=== PATIENT | female | born 1955 | race Asian ===

== ENCOUNTER 2017-02-07 07:36 | Outpatient (CLI) | payer BC | END 2017-02-07 07:37 | disposition home or self-care (01) | DX: L40.50 Arthropathic psoriasis, unspecified (principal) ==

== ENCOUNTER 2017-03-28 10:00 | Outpatient (CLI) | payer BC, MEDICAID ==
[2017-03-28 13:30] LABS: ALBUMIN/GLOBULIN RATIO 1.2 (1.0-2.2); BILIRUBIN,TOTAL 0.8 mg/dL (0.2-1.0); BUN - BLOOD UREA NITROGEN 18 mg/dL (6-20); CALCIUM 10.1 mg/dL (8.5-10.3); CARBON DIOXIDE - CO2 28 mmol/L (21-32); CHLORIDE 102 mmol/L (101-111); CHOL/HDL RATIO 5.7 (<4.4); CHOLESTEROL 279 mg/dL; CREATININE 0.9 mg/dL (0.4-1.0); GFR - MDRD 64 (>89); GLUCOSE 96 mg/dL (70-100); HDL CHOLESTEROL 49 mg/dL; LDL/HDL RATIO 4.1 (<4.4); POTASSIUM 2.8 mmol/L (3.5-5.0); SODIUM 139 mmol/L (135-145); TOTAL PROTEIN 7.8 g/dL (6.7-8.2); TRIGLYCERIDES 155 mg/dL; VLDL CHOLESTEROL 31 mg/dL
[2017-03-28 14:07] LABS: THYROID STIMULATING HORMONE 0.09 uIU/mL (0.34-5.60)
== END 2017-03-28 10:01 | disposition home or self-care (01) ==
LOC: LAB.N 10:00
PROVIDERS: ATTEND Family Medicine
DX: I12.9 Hypertensive chronic kidney disease with stage 1 through stage 4 chronic kidney disease, or unspecified chronic kidney disease (principal); N28.9 Disorder of kidney and ureter, unspecified
CPT/HCPCS: 36415; 80053; 80061; 84439; 84443

== ENCOUNTER 2017-06-25 15:08 | Outpatient (CLI) | payer MEDICAID ==
[2017-06-25 15:46] LABS: CALCIUM 9.9 mg/dL (8.5-10.3); CREATININE 1.1 mg/dL (0.4-1.0); POTASSIUM 3.6 mmol/L (3.5-5.0)
[2017-06-25 16:56] LABS: THYROID STIMULATING HORMONE 1.27 uIU/mL (0.34-5.60)
== END 2017-06-25 15:09 | disposition home or self-care (01) ==
LOC: LAB 15:08
PROVIDERS: ATTEND Family Medicine
DX: E87.6 Hypokalemia (principal); E03.9 Hypothyroidism, unspecified
CPT/HCPCS: 36415; 80048; 84439; 84443

== ENCOUNTER 2017-08-13 10:30 | Emergency (ER) | payer MEDICAID ==
--- NOTE | 2017-08-13 12:10 | ED Physician Documentation ---
PD HPI FOCAL NEURO - Stated complaint Stated Complaint: DIZZINESS - Chief complaint Chief Complaint: Neuro - History obtained from History obtained from: Patient - History of Present Illness Timing - onset: Other (62-year-old woman with history of recurrent vertigo and rheumatoid arthritis as well as psoriasis presents with spinning vertigo that started while she was rotating to get out of bed this morning. She had 2 episodes of vomiting. The vertigo is now gone but the nausea is persistent. She had a headache with this but it was mild and is gone at this point. She also notes for the last week she has had diffuse increased joint swelling and pain especially of the hands feet and ankles. There is no associated fever. She has had some pain of the right ear but no hearing issues. No diplopia.) Review of Systems Constitutional: denies: Fever, Chills Eyes: denies: Loss of vision, Decreased vision, Photophobia, Discharge, Irritation Ears: reports: Ear pain. denies: Loss of hearing, Drainage/discharge, Tinnitus/ ringing, Foreign body Nose: denies: Rhinorrhea / runny nose, Congestion Cardiac: denies: Chest pain / pressure, Palpitations Respiratory: denies: Dyspnea, Cough GI: reports: Nausea, Vomiting. 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 - Present Medications Home Medications: Ambulatory Orders Medication Instructions Recorded Confirmed Etanercept [Enbrel] 50 mg SQ 08/13/17 Lactobacillus Acidophilus 1 each PO 08/13/17 [Probiotic Acidophilus] Levothyroxine [Synthroid] 08/13/17 Meclizine HCl 1 tab PO Q6H PRN #15 tab.chew 08/13/17 Ondansetron HCl [Zofran] 4 mg PO Q6H PRN #10 tablet 08/13/17 Potassium Chloride 10 meq PO 08/13/17 Pravastatin [Pravachol] 08/13/17 predniSONE [Deltasone] 20 mg PO [id number] #21 tab 08/13/17 - Allergies Allergies/Adverse Reactions: Allergies Allergy/AdvReac Type Severity Reaction Status Date / Time No Known Drug Allergies Allergy Verified 08/13/17 10:37 - Social History Does the pt smoke?: No Smoking Status: Never smoker Does the pt drink ETOH?: No Does the pt have substance abuse?: No - Immunizations Immunizations are current?: Yes - POLST Patient has POLST: No PD ED PE NORMAL - Vitals Vital signs reviewed: Yes - General General: Alert and oriented X 3, No acute distress - HEENT HEENT: PERRL, EOMI, Ears normal, Moist mucous membranes, Pharynx benign - Neck Neck: Supple, no meningeal sign, No bony TTP - Cardiac Cardiac: RRR, No murmur - Respiratory Respiratory: No respiratory distress, Clear bilaterally - Abdomen Abdomen: Normal bowel sounds, Soft, Non tender - Back Back: No CVA TTP, No spinal TTP - Extremities Extremities: No edema, No calf tenderness / cord - Neuro Neuro: Alert and oriented X 3, Normal speech - Psych Psych: Normal mood, Normal affect NIHSS - Time Time: 12:05 - Level of Consciousness Level of consciousness: (0) Alert, Keenly responsive LOC Questions: (0) Answers both Q's correct LOC Commands: (0) Performs both correctly - Gaze Best Gaze: (0) Normal - Visual Visual: (0) No loss - Facial Palsy Facial Palsy: (0) Normal, symmetrical movement - Motor Arms (both separate) Motor Arm (right): (0) No drift Motor Arm (left): (0) No drift - Motor Legs (both separate) Motor Leg (right): (0) No drift Motor Leg (left): (0) No drift - Limb Ataxia Limb Ataxia: (0) Absent - Sensory Sensory: (0) Normal - Best Language Best Language: (0) No aphasia - Dysarthria Dysarthria: (0) Normal - Extinction and Inattention (formally neg Extinction and inattention: (0) No abnormality - Total Score/Results Total Score/Result: 0 Results - Vitals Vitals: Vital Signs - 24 hr 08/13/17 10:34 Temperature 36.4 C L Heart Rate 53 L Respiratory 16 Rate Blood Pressure 163/81 H O2 Saturation 98 Oxygen O2 Source Room air - EKG (time done) 1039 Rate: Rate (enter#) (54) Rhythm: NSR [place]: Normal Intervals: Normal HI QRS: Normal Ischemia: Non specific changes (FLAT TWAVES IZZY INFERIUOR). No: ST elevation c /w ischemia Computer interpretation: Agree with computer PD MEDICAL DECISION MAKING - ED course ED course: 62-year-old woman with resolved recurrent vertigo with nausea that is persistent , also a rheumatoid arthritis flare without physical findings. She is given meclizine, Zofran, prednisone taper. There is no evidence of CVA. Departure - Departure Disposition: 01 Home, Self Care Clinical Impression: Vertigo, Rheumatoid arthritis flare Condition: Good Record reviewed to determine appropriate education?: Yes Instructions: ED Arthritis Rheumatoid, ED Vertigo Unspecified Prescriptions: Meclizine HCl 1 tab PO Q6H PRN #15 tab.chew PRN Reason: Vertigo Ondansetron HCl [Zofran] 4 mg PO Q6H PRN #10 tablet PRN Reason: Nausea / Vomiting predniSONE [Deltasone] 20 mg PO [id number] #21 tab Comments: Call your doctor to arrange a follow-up appointment, make the next available appointment. In the interim, return anytime if worse or if new symptoms develop. Your blood pressure was elevated today on check into the emergency department. This does not mean that you have hypertension, it is a common phenomenon to come to the emergency department and have elevated blood pressure. I recommend that you see your primary care physician within the week to have it rechecked when you are feeling better. Forms: Activity restrictions
[2017-08-13 12:15] VITALS: BP 167/78
== END 2017-08-13 12:15 | disposition home or self-care (01) ==
LOC: ED 10:30
DX: R42 Dizziness and giddiness (principal); M06.9 Rheumatoid arthritis, unspecified; R03.0 Elevated blood-pressure reading, without diagnosis of hypertension
CPT/HCPCS: 93005; 99283; 99284

== ENCOUNTER 2017-08-22 13:43 | Outpatient (CLI) | payer MEDICAID ==
[2017-08-22 14:41] LABS: BASOPHILS # (AUTO) 0.1 10^3/uL (0.0-0.1); BASOPHILS % (AUTO) 0.9 %; EOSINOPHILS # (AUTO) 0.1 10^3/uL (0.0-0.7); EOSINOPHILS % (AUTO) 1.4 %; HCT - HEMATOCRIT 41.9 % (37.0-47.0); LYMPHOCYTES % (AUTO) 31.3 %; MEAN CORPUSCULAR HEMOGLOBIN 30.2 pg (27.0-31.0); MEAN CORPUSCULAR HGB CONC 33.4 g/dL (32.0-36.0); MEAN CORPUSCULAR VOLUME 90.7 fL (81.0-99.0); MEAN PLATELET VOLUME 8.1 fL (7.9-10.8); MONOCYTES % (AUTO) 9.9 %; NEUTROPHILS # (AUTO) 5.4 10^3/uL (1.5-6.6); NEUTROPHILS % (AUTO) 56.5 %; NUCLEATED RED BLOOD CELLS AUTO 0.1 /100WBC; RED BLOOD COUNT 4.62 10^6/uL (4.20-5.40); RED CELL DISTRIBUTION WIDTH 13.8 % (12.0-15.0); UNCORRECTED WHITE BLOOD COUNT 9.6 x10^3/uL; WHITE BLOOD COUNT 9.6 x10^3/uL (4.8-10.8)
[2017-08-22 14:52] LABS: ALBUMIN/GLOBULIN RATIO 1.2 (1.0-2.2); BILIRUBIN,TOTAL 0.7 mg/dL (0.2-1.0); CALCIUM 9.5 mg/dL (8.5-10.3); CREATININE 1.3 mg/dL (0.4-1.0); POTASSIUM 2.7 mmol/L (3.5-5.0); TOTAL PROTEIN 7.1 g/dL (6.7-8.2)
[2017-08-26 16:11] LABS: TEST RESULT REPORT
== END 2017-08-22 13:44 | disposition home or self-care (01) ==
LOC: LAB 13:43
PROVIDERS: ATTEND Family Medicine
DX: L40.50 Arthropathic psoriasis, unspecified (principal)
CPT/HCPCS: 36415; 80053; 81599; 85025; 85651; 86317; 86480; 86704; 87340

== ENCOUNTER 2017-09-17 15:32 | Outpatient (CLI) | payer MEDICAID ==
[2017-09-17 16:13] LABS: CALCIUM 10.5 mg/dL (8.5-10.3); CREATININE 1.1 mg/dL (0.4-1.0); POTASSIUM 3.9 mmol/L (3.5-5.0)
== END 2017-09-17 15:33 | disposition home or self-care (01) ==
LOC: LAB 15:32
PROVIDERS: ATTEND Family Medicine
DX: E87.6 Hypokalemia (principal)
CPT/HCPCS: 36415; 80048

== ENCOUNTER 2017-11-11 09:00 | Emergency (ER) | payer MEDICAID ==
[2017-11-11 09:18] VITALS: BP 135/72
[2017-11-11] MEDS ORDERED: IBUPROFEN 400 MG TABLET PO STA (09:35)
--- NOTE | 2017-11-11 09:39 | ED Physician Documentation ---
History of Present Illness - Stated complaint Stated Complaint: LEFT ANKLE PX - Chief complaint Chief Complaint: Ext Problem - Additonal information Additional information: hx from pt 62 female hx ankle sprain and recurrent ankle pain and swelling phyllis with bad weather her ankle has again been painful and swollen for a few days cannot work at [employer] today 2/2 pain was warm to touch yesterday but less so today no fever no one injury Review of Systems Constitutional: denies: Fever Cardiac: denies: Chest pain / pressure Respiratory: denies: Dyspnea Musculoskeletal: reports: Joint pain Immunocompromised: reports: Immunocompromised (takes meds for psoriasis) PD PAST MEDICAL HISTORY - Past Medical History Past Medical History: Yes Cardiovascular: Hypertension Endocrine/Autoimmune: HyPOthyroidism - Past Surgical History Past 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 - Present Medications Home Medications: Ambulatory Orders Medication Instructions Recorded Confirmed Levothyroxine [Synthroid] 08/13/17 Potassium Chloride 10 meq PO 08/13/17 Pravastatin [Pravachol] 08/13/17 Ibuprofen [Motrin] 400 mg PO Q8H PRN #20 tablet 11/11/17 Lactobacillus Acidophilus 11/11/17 [Digestive Probiotic] Secukinumab [Cosentyx Pen] 11/11/17 - Allergies Allergies/Adverse Reactions: Allergies Allergy/AdvReac Type Severity Reaction Status Date / Time No Known Drug Allergies Allergy Verified 11/11/17 09:18 - Social History Does the pt smoke?: No Smoking Status: Never smoker Does the pt drink ETOH?: No Does the pt have substance abuse?: No - Immunizations Immunizations are current?: Yes - POLST Patient has POLST: No PD ED PE NORMAL - Vitals Vital signs reviewed: Yes - Cardiac Cardiac: RRR - Respiratory Respiratory: No respiratory distress, Clear bilaterally - Extremities Extremities: Other (L vic - _ edema to [place]rah[place] mall lateral > medial, slightly warm , no sig erythema, some psoriasis but no open infected wounds, no streaking, able to range with minimal pain, calf not swollen and no cord, MSV intact) Results - Vitals Vitals: Vital Signs - 24 hr 11/11/17 09:03 Temperature 36.5 C Heart Rate 73 Respiratory 20 Rate Blood Pressure 135/72 H O2 Saturation 100 Oxygen O2 Source Room air PD MEDICAL DECISION MAKING - ED course ED course: seems most like an arthritis flare 2/2 cold weather today - pt has hx same doubt infected joint but she is slightly immunocompromised from her psoriasis meds will tx with NSAIDS but caution to return if worse Departure - Departure Disposition: Home, Self Care Clinical Impression: Arthritis Condition: Good Follow-Up: Sunny Mcdonough MD [Primary Care Provider] - (for a recheck Saturday) Prescriptions: Ibuprofen [Motrin] 400 mg PO Q8H PRN #20 tablet PRN Reason: Pain Comments: At this point this pain looks like an arthritis flare. Try taking motrin 400 mg three times a day with meals, resting, using the BHAKTI wrap and ice and elevation to decrease the swelling I wrote you a note for two days off work. Follow up with your PMD for a recheck Saturday Return to the ER if worse as we discussed(fever, streaking redness, worsening swelling and pain) Forms: Activity restrictions
== END 2017-11-11 10:32 | disposition home or self-care (01) ==
LOC: ED 09:00
DX: M19.072 Primary osteoarthritis, left ankle and foot (principal); M19.071 Primary osteoarthritis, right ankle and foot; I10 Essential (primary) hypertension; E03.9 Hypothyroidism, unspecified
CPT/HCPCS: 99283; A9270

== ENCOUNTER 2018-01-03 08:00 | Outpatient (CLI) | payer MEDICAID ==
[2018-01-03 19:09] LABS: CALCIUM 9.6 mg/dL (8.5-10.3)
[2018-01-03 19:26] LABS: THYROID STIMULATING HORMONE 0.87 uIU/mL (0.34-5.60)
[2018-01-03 19:28] LABS: FREE T4 (FREE THYROXINE) 1.3 ng/dL (0.58-1.64)
== END 2018-01-03 08:01 | disposition home or self-care (01) ==
LOC: LAB.N 08:00
PROVIDERS: ATTEND Family Medicine
DX: E87.6 Hypokalemia (principal); E03.9 Hypothyroidism, unspecified
CPT/HCPCS: 36415; 80048; 84439; 84443

== ENCOUNTER 2018-03-20 08:00 | Outpatient (CLI) | payer MEDICAID ==
[2018-03-20 12:42] LABS: ALBUMIN 3.7 g/dL (3.2-5.5); ALBUMIN/GLOBULIN RATIO 1.1 (1.0-2.2); BILIRUBIN,TOTAL 0.9 mg/dL (0.2-1.0); CALCIUM 9.8 mg/dL (8.5-10.3); CREATININE 0.9 mg/dL (0.4-1.0); TOTAL PROTEIN 7.1 g/dL (6.7-8.2)
[2018-03-20 12:48] LABS: BASOPHILS % (AUTO) 0.9 %; EOSINOPHILS # (AUTO) 0.1 10^3/uL (0.0-0.7); EOSINOPHILS % (AUTO) 2.3 %; HGB - HEMOGLOBIN 13.7 g/dL (12.0-16.0); LYMPHOCYTES # (AUTO) 2.2 10^3/uL (1.5-3.5); LYMPHOCYTES % (AUTO) 42.4 %; MEAN CORPUSCULAR HEMOGLOBIN 30.8 pg (27.0-31.0); MEAN CORPUSCULAR HGB CONC 33.5 g/dL (32.0-36.0); MEAN CORPUSCULAR VOLUME 91.9 fL (81.0-99.0); MEAN PLATELET VOLUME 8.5 fL (7.9-10.8); MONOCYTES # (AUTO) 0.4 10^3/uL (0.0-1.0); MONOCYTES % (AUTO) 7.7 %; NEUTROPHILS # (AUTO) 2.4 10^3/uL (1.5-6.6); NEUTROPHILS % (AUTO) 46.7 %; PLT - PLATELET COUNT 261 10^3/uL (130-450); RED BLOOD COUNT 4.44 10^6/uL (4.20-5.40); RED CELL DISTRIBUTION WIDTH 13.5 % (12.0-15.0); WHITE BLOOD COUNT 5.2 x10^3/uL (4.8-10.8)
== END 2018-03-20 08:01 | disposition home or self-care (01) ==
LOC: LAB.WCP 08:00
PROVIDERS: ATTEND Internal Medicine Rheumatology
DX: L40.50 Arthropathic psoriasis, unspecified (principal)
CPT/HCPCS: 36415; 80053; 85025; 85651

== ENCOUNTER 2018-04-29 13:55 | Emergency (ER) | payer OTHER, MEDICAID ==
--- NOTE | 2018-04-29 15:22 | XRAY Report ---
Procedure Date: 04/29/2018 Accession Number: [id number] / [id number] Procedure: XR - Hand 3 View LT CPT Code: FULL RESULT: EXAM: LEFT HAND RADIOGRAPHY EXAM DATE: 04/29/2018 03:11 PM. CLINICAL HISTORY: Hand injury/pain/swelling. COMPARISON: None. TECHNIQUE: 3 views. FINDINGS: Bones: No displaced fracture. No suspicious focal osseous lesion. Joints: No malalignment. Multifocal joint space narrowing and osteophytic spurring present throughout the proximal and distal interphalangeal joints of the second through fifth digits, mild. Mild degenerative change at the first carpometacarpal joint and moderate at the first metacarpophalangeal joint. Soft Tissues: No focal soft tissue swelling appreciated. No radiopaque foreign body. IMPRESSION: No acute osseous abnormality with multifocal DJD, greatest and moderate at the first metacarpophalangeal joint. RADIA
--- NOTE | 2018-04-29 16:40 | ED Physician Documentation ---
PD HPI UPPER EXT INJURY - Stated complaint Stated Complaint: HAND INJURY - Chief complaint Chief Complaint: Trauma Ext - History obtained from History obtained from: Patient - History of Present Illness Location: Left, Hand Type of injury: Blunt / blow (dumpster lid struck hand firmly.) Where injury occurred: Work Timing - onset: Today Timing - details: Abrupt onset, Still present Worsened by: Moving, Palpating Associated symptoms: Swelling. 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 - Present Medications Home Medications: Ambulatory Orders Medication Instructions Recorded Confirmed Levothyroxine [Synthroid] 08/13/17 Potassium Chloride 10 meq PO 08/13/17 Pravastatin [Pravachol] 08/13/17 Ibuprofen [Motrin] 400 mg PO Q8H PRN #20 tablet 11/11/17 Lactobacillus Acidophilus 11/11/17 [Digestive Probiotic] Secukinumab [Cosentyx Pen] 11/11/17 - Allergies Allergies/Adverse Reactions: Allergies Allergy/AdvReac Type Severity Reaction Status Date / Time No Known Drug Allergies Allergy Verified 11/11/17 09:18 - Social History Does the pt smoke?: No Smoking Status: Never smoker Does the pt drink ETOH?: No Does the pt have substance abuse?: No - Immunizations Immunizations are current?: Yes - POLST Patient has POLST: No PD ED PE NORMAL - Vitals Vital signs reviewed: Yes - General General: Alert and oriented X 3, No acute distress, Well developed/nourished - Derm Derm: Normal color, Warm and dry - Extremities Extremities: Other (left hand with focal swelling and tenderness, early bruising , dorsal aspect over 3rd-5th metacarpals area. No gross deformity. Normal color in fingers. ) - Neuro Neuro: Alert and oriented X 3, No motor deficit, No sensory deficit, Normal speech Results - Vitals Vitals: Oxygen O2 Source Room air - Rads (name of study) right hand Radiology: Prelim report reviewed (no fractures) PD MEDICAL DECISION MAKING - ED course Complexity details: reviewed results, considered differential, d/w patient - Sepsis Event Vital Signs: Oxygen O2 Source Room air Departure - Departure Disposition: 01 Home, Self Care Clinical Impression: Contusion of left hand Qualifiers: Encounter type: initial encounter Qualified Code(s): S60.222A - Contusion of left hand, initial encounter Condition: Stable Record reviewed to determine appropriate education?: Yes Instructions: ED Contusion Hand Follow-Up: Sunny Mcdonough MD [Primary Care Provider] - Comments: Ice and elevation and Suhail wrap for the swelling. There is no fracture seen on x -ray. Tylenol and ibuprofen as needed for pains. Minimal use of that hand for 2-3 days and it should improve. Recheck if not improved over the next several days to week. Forms: Activity restrictions Discharge Date/Time: 04/29/18 17:15
[2018-04-29] MEDS ORDERED: IBUPROFEN 600 MG TABLET PO STA (16:52)
[2018-04-29] MEDS ORDERED: ACETAMINOPHEN 325 MG TABLET PO STA (16:52)
[2018-04-29 17:10] VITALS: BP 135/90
== END 2018-04-29 17:15 | disposition home or self-care (01) ==
LOC: ED 13:55
DX: S60.222A Contusion of left hand, initial encounter (principal); W22.8XXA Striking against or struck by other objects, initial encounter; I10 Essential (primary) hypertension; E03.9 Hypothyroidism, unspecified; Y99.0 Civilian activity done for income or pay
CPT/HCPCS: 1040M; 73130; 99282; 99283; A9270

== ENCOUNTER 2018-05-06 14:47 | Emergency (ER) | payer OTHER, MEDICAID ==
[2018-05-06 15:02] VITALS: BP 130/64
--- NOTE | 2018-05-06 15:42 | XRAY Report ---
Procedure Date: 05/06/2018 Accession Number: [id number] / [id number] Procedure: XR - Hand 3 View LT CPT Code: FULL RESULT: EXAM: LEFT HAND RADIOGRAPHY EXAM DATE: 05/06/2018 03:17 PM. CLINICAL HISTORY: Pain/swelling. COMPARISON: Hand 3 view left 04/29/2018. TECHNIQUE: 3 views. FINDINGS: Bones: Normal. No fractures or bone lesions. Joints: Minimal degenerative joint disease at the interphalangeal joints is again seen. [id number] degenerative changes at the first metacarpophalangeal and carpometacarpal joints is also redemonstrated. Soft Tissues: Normal. No soft tissue swelling. IMPRESSION: [id number] degenerative changes, unchanged from prior. No acute fracture or dislocation. RADIA
--- NOTE | 2018-05-06 15:45 | ED Physician Documentation ---
PD HPI UPPER EXT INJURY - Stated complaint Stated Complaint: L HAND INJ - Chief complaint Chief Complaint: Ext Problem - History obtained from History obtained from: Patient - History of Present Illness Location: Left, Hand Type of injury: Blunt / blow Where injury occurred: Work Timing - onset: How many days ago (7) Timing - duration: Days (7) Timing - details: Abrupt onset, Still present Improved by: Rest, Ice, Immobilization Worsened by: Moving, Palpating Associated symptoms: Swelling. No: Weakness, Numbness Contributing factors: No: Anticoagulated Similar symptoms before: Has not had sx before Recently seen: Emergency Dept - Additonal information Additional information: 63-year-old female was at work 1 week ago when the crank arm from a dumpster flipped back and struck her left hand over the dorsum. She had a significant amount of swelling with this and was seen in the emergency department had x- rays demonstrate no fracture and she was placed into an aluminum foam splint. She was instructed to have modified duty at work. She continues to have pain and swelling and she is not able to perform her duties at work. Review of Systems Constitutional: denies: Fever Respiratory: denies: Cough GI: denies: Vomiting : denies: Dysuria Skin: denies: Rash Musculoskeletal: reports: Extremity pain, Extremity swelling, Pain with weight bearing. 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 - Present Medications Home Medications: Ambulatory Orders Medication Instructions Recorded Confirmed Levothyroxine [Synthroid] 08/13/17 Potassium Chloride 10 meq PO 08/13/17 Pravastatin [Pravachol] 08/13/17 Ibuprofen [Motrin] 400 mg PO Q8H PRN #20 tablet 11/11/17 Lactobacillus Acidophilus 11/11/17 [Digestive Probiotic] Secukinumab [Cosentyx Pen] 11/11/17 - Allergies Allergies/Adverse Reactions: Allergies Allergy/AdvReac Type Severity Reaction Status Date / Time cephalexin [From Keflex] Allergy Hives Verified 05/06/18 15:02 - Social History Does the pt smoke?: No Smoking Status: Never smoker Does the pt drink ETOH?: No Does the pt have substance abuse?: No - Immunizations Immunizations are current?: Yes - POLST Patient has POLST: No PD ED PE NORMAL - Vitals Vital signs reviewed: Yes (normal) - General General: Alert and oriented X 3, No acute distress, Well developed/nourished - HEENT HEENT: Atraumatic, PERRL - Respiratory Respiratory: No respiratory distress - Derm Derm: Normal color, Warm and dry, No rash - Extremities Extremities: No deformity, Other (There is swelling and point tenderness over the dorsum of the left hand over hte 2nd and 3rd metacarpals. She is able flex and extend at the wrist and fingers with pain. distal n/v is intact. 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, No motor deficit, No sensory deficit, Normal speech Eye Opening: Spontaneous Motor: Obeys Commands Verbal: Oriented GCS Score: 15 - Psych Psych: Normal mood, Normal affect Results - Vitals Vitals: Vital Signs - 24 hr 05/06/18 14:59 Temperature 36.0 C L Heart Rate 66 Respiratory 18 Rate Blood Pressure 130/64 O2 Saturation 97 Oxygen O2 Source Room air - Rads (name of study) left hand Radiology: Prelim report reviewed Procedures - Splint (location) left hand Splint applied by: Tech Type of splint: Fiberglass, Volar cock up Other: Patient tolerated well, No complications, Neurovascular intact, Good alignment PD MEDICAL DECISION MAKING - ED course Complexity details: reviewed old records, reviewed results, re-evaluated patient , considered differential, d/w patient ED course: 63-year-old female with a contusion to the left hand with significant swelling and pain. She has had to use the hand at work and she needs time to recover. She is placed into a fiberglass splint and given 5 days without work. - Sepsis Event Vital Signs: Vital Signs - 24 hr 05/06/18 14:59 Temperature 36.0 C L Heart Rate 66 Respiratory 18 Rate Blood Pressure 130/64 O2 Saturation 97 Oxygen O2 Source Room air Departure - Departure Disposition: 01 Home, Self Care Clinical Impression: Contusion of left hand Qualifiers: Encounter type: subsequent encounter Qualified Code(s): S60.222D - Contusion of left hand, subsequent encounter Condition: Stable Instructions: ED Contusion Hand Follow-Up: Sunny Mcdonough MD [Primary Care Provider] - Forms: Activity restrictions
== END 2018-05-06 15:49 | disposition home or self-care (01) ==
LOC: ED 14:47
DX: S60.222A Contusion of left hand, initial encounter (principal); W22.8XXA Striking against or struck by other objects, initial encounter; Y99.0 Civilian activity done for income or pay; I10 Essential (primary) hypertension; E03.9 Hypothyroidism, unspecified
CPT/HCPCS: 29125; 99281; 99283

== ENCOUNTER 2018-07-11 09:50 | Outpatient (CLI) | payer MEDICAID ==
[2018-07-11 12:32] LABS: BASOPHILS % (AUTO) 0.8 %; EOSINOPHILS # (AUTO) 0.1 10^3/uL (0.0-0.7); EOSINOPHILS % (AUTO) 1.9 %; HGB - HEMOGLOBIN 13.9 g/dL (12.0-16.0); LYMPHOCYTES # (AUTO) 2.4 10^3/uL (1.5-3.5); LYMPHOCYTES % (AUTO) 43.8 %; MEAN CORPUSCULAR HEMOGLOBIN 30.4 pg (27.0-31.0); MEAN CORPUSCULAR HGB CONC 33.9 g/dL (32.0-36.0); MEAN CORPUSCULAR VOLUME 89.6 fL (81.0-99.0); MEAN PLATELET VOLUME 8.3 fL (7.9-10.8); MONOCYTES # (AUTO) 0.4 10^3/uL (0.0-1.0); NEUTROPHILS # (AUTO) 2.5 10^3/uL (1.5-6.6); NEUTROPHILS % (AUTO) 45.5 %; PLT - PLATELET COUNT 280 10^3/uL (130-450); RED BLOOD COUNT 4.58 10^6/uL (4.20-5.40); RED CELL DISTRIBUTION WIDTH 13.3 % (12.0-15.0); WHITE BLOOD COUNT 5.4 x10^3/uL (4.8-10.8)
[2018-07-11 12:41] LABS: ALBUMIN/GLOBULIN RATIO 1.1 (1.0-2.2); ALKALINE PHOSPHATASE 67 IU/L (42-121); ALT ALANINE AMINOTRANSFERASE 19 IU/L (10-60); AST ASPARTATE AMINOTRANSFERASE 23 IU/L (10-42); BILIRUBIN,TOTAL 0.9 mg/dL (0.2-1.0); BUN - BLOOD UREA NITROGEN 16 mg/dL (6-20); CALCIUM 9.9 mg/dL (8.5-10.3); CARBON DIOXIDE - CO2 29 mmol/L (21-32); CHLORIDE 101 mmol/L (101-111); CHOL/HDL RATIO 4.7 (<4.4); CHOLESTEROL 262 mg/dL; CREATININE 0.9 mg/dL (0.4-1.0); GFR - MDRD 64 (>89); GLUCOSE 103 mg/dL (70-100); HDL CHOLESTEROL 56 mg/dL; LDL CHOLESTEROL,CALCULATED 179 mg/dL; LDL/HDL RATIO 3.2 (<4.4); SODIUM 139 mmol/L (135-145); TOTAL PROTEIN 7.5 g/dL (6.7-8.2); VLDL CHOLESTEROL 27 mg/dL
[2018-07-11 12:48] LABS: THYROID STIMULATING HORMONE 0.36 uIU/mL (0.34-5.60)
[2018-07-11 12:51] LABS: FREE T4 (FREE THYROXINE) 1.35 ng/dL (0.58-1.64)
== END 2018-07-11 09:51 | disposition home or self-care (01) ==
LOC: LAB.N 09:50
PROVIDERS: ATTEND Family Medicine
DX: E87.6 Hypokalemia (principal); R73.9 Hyperglycemia, unspecified; I10 Essential (primary) hypertension; E03.9 Hypothyroidism, unspecified
CPT/HCPCS: 36415; 80053; 80061; 83721; 84439; 84443; 85025

== ENCOUNTER 2018-08-02 21:52 | Outpatient (CLI) | payer MEDICAID | END 2018-08-02 21:53 | disposition critical access hospital (66) | LOC: EMS 21:52 | PROVIDERS: ATTEND Surgery | DX: R07.9 Chest pain, unspecified (principal) | CPT/HCPCS: A0425; A0429; A0999 ==

== ENCOUNTER 2018-08-02 22:12 | Emergency (ER) | payer MEDICAID ==
[2018-08-02] MEDS ORDERED: cefTRIAXone 1 GM in SODIUM CHLORIDE 0.9% MINIBAG 100 ML IV STA (22:39)
--- NOTE | 2018-08-02 22:39 | ED Physician Documentation ---
PD HPI CHEST PAIN - Stated complaint Stated Complaint: CP - Chief complaint Chief Complaint: Cardiac - History obtained from History obtained from: Patient - History of Present Illness Timing - onset: Today Timing - onset during: Rest Timing - duration: Hours Timing - details: Gradual onset, Still present Quality: Aching, Sharp Location: Substernal Radiation: Left upper extremity Improved by: Other medication Worsened by: Inspiration, Movement, Palpation Associated symptoms: Cough. No: Shortness of air Similar symptoms before: Has not had sx before Recently seen: Other - Additional information Additional information: 63-year-old female is on cosentyx for rheumatoid arthritis has developed a cough and congestion about 1 week ago and tonight she is experiencing substernal chest discomfort which is aching and appears to radiate to her left shoulder. She has had some shortness of breath associate with a cough and she has pain when she takes a deep breath. She also has pain to compression of her chest. Review of Systems Constitutional: reports: Chills, Myalgias. denies: Fever Eyes: denies: Decreased vision Ears: denies: Ear pain Nose: reports: Rhinorrhea / runny nose, Congestion Throat: reports: Sore throat Cardiac: reports: Chest pain / pressure. denies: Palpitations, Pedal edema, Calf pain Respiratory: reports: Dyspnea, Cough GI: denies: Abdominal Pain, Nausea, Vomiting : denies: Dysuria, Frequency PD PAST MEDICAL HISTORY - Past Medical History Cardiovascular: Hypertension Endocrine/Autoimmune: HyPOthyroidism - Past Surgical History Past Surgical History: Yes /[employer]: Hysterectomy - Present Medications Home Medications: Ambulatory Orders Medication Instructions Recorded Confirmed Levothyroxine [Synthroid] 08/13/17 Potassium Chloride 10 meq PO 08/13/17 Pravastatin [Pravachol] 08/13/17 Ibuprofen [Motrin] 400 mg PO Q8H PRN #20 tablet 11/11/17 Lactobacillus Acidophilus 11/11/17 [Digestive Probiotic] Secukinumab [Cosentyx Pen] 11/11/17 Cefdinir 300 mg PO BID #20 capsule 08/03/18 - Allergies Allergies/Adverse Reactions: Allergies Allergy/AdvReac Type Severity Reaction Status Date / Time cephalexin [From Keflex] Allergy Hives Verified 05/06/18 15:02 - Social History Does the pt smoke?: No Smoking Status: Never smoker Does the pt drink ETOH?: No Does the pt have substance abuse?: No - Immunizations Immunizations are current?: Yes - POLST Patient has POLST: No PD ED PE NORMAL - Vitals Vital signs reviewed: Yes (hypertensive ) - General General: Alert and oriented X 3, Well developed/nourished, Other (appears to be in some pain with 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 ) - HEENT HEENT: Atraumatic, PERRL, EOMI, Other (both TM's are inflammed with indistinct landmarks and the left is more involved than the right.) - Neck Neck: Supple, no meningeal sign, No bony TTP - Cardiac Cardiac: RRR, No murmur - Respiratory Respiratory: No respiratory distress, Clear bilaterally, Other (There is chest wall tenderness to palpation of the anterior chest wall especially on the left side that reproduces the pain the patient is experiencing. ) - Abdomen Abdomen: Soft, Non tender - Back Back: No CVA TTP, No spinal TTP - Derm Derm: Normal color, Warm and dry, No rash - Extremities Extremities: No deformity, No edema - Neuro Neuro: Alert and oriented X 3, channel specialist 2-12 intact, No motor deficit, No sensory deficit, Normal speech Eye Opening: Spontaneous Motor: Obeys Commands Verbal: Oriented GCS Score: 15 - Psych Psych: Normal mood, Normal affect Results - Vitals Vitals: Vital Signs - 24 hr 08/02/18 08/02/18 08/03/18 22:16 23:19 00:16 Temperature 36.1 C L Heart Rate 60 57 L 60 Respiratory 15 13 14 Rate Blood Pressure 182/68 H 140/67 H 168/79 H O2 Saturation 100 97 98 Oxygen O2 Source Room air - EKG (time done) 2220 Rate: Rate (enter#) (51) Rhythm: NSR Ischemia: Normal ST segments Compare to prior EKG: Unchanged from prior EKG (08-13-17) Computer interpretation: Agree with computer - Labs Labs: Laboratory Tests 08/02/18 08/02/18 08/02/18 23:10 23:10 23:10 WBC 5.5 RBC 4.48 Hgb 13.7 Hct 40.5 MCV 90.5 MCH 30.6 MCHC 33.9 RDW 13.4 Plt Count 258 MPV 7.8 L Neut # (Auto) 3.0 Lymph # (Auto) 1.8 [place] # (Auto) 0.5 Eos # (Auto) 0.2 Baso # (Auto) 0.0 Absolute Nucleated RBC 0.00 Nucleated RBC % 0.0 Sodium 140 Potassium 2.7 L Chloride 102 Carbon Dioxide 31 Anion Gap 7.0 BUN 18 Creatinine 1.0 Estimated GFR (MDRD) 56 L Glucose 130 H Calcium 9.5 Total Bilirubin 0.6 AST 23 ALT 18 Alkaline Phosphatase 64 Troponin I < 0.04 Total Protein 7.3 Albumin 3.9 Globulin 3.4 Albumin/Globulin Ratio 1.1 Lipase 28 - Rads (name of study) 2 veiw chest Radiology: Prelim report reviewed (Impression: No acute cardiopulmonary abnormality), EMP read indepedently, See rad report PD MEDICAL DECISION MAKING - ED course Complexity details: reviewed old records, reviewed results, re-evaluated patient, considered differential, d/w patient ED course: 63-year-old female on close Entex for rheumatoid arthritis has bilateral otitis media and pleuritic chest pain. She does not have evidence of pneumonia on chest x-ray her echocardiogram and diagnostics are otherwise unremarkable with the exception of a low potassium at 2.7. She is administered 25 mEq of potassium here in the emerge department orally and 10 mEq intravenously. She is administered dexamethasone 10 mg as well. And 1 g of Rocephin intravenously. Departure - Departure Disposition: 01 Home, Self Care Clinical Impression: Costochondritis, acute, Hypokalemia Otitis media Qualifiers: Otitis media type: suppurative Chronicity: acute Laterality: bilateral Recurrence: not specified as recurrent Spontaneous tympanic membrane rupture: without spontaneous rupture Qualified Code(s): H66.003 - Acute suppurative otitis media without spontaneous rupture of ear drum, bilateral Condition: Stable Instructions: ED Chest Pain Costochondritis, ED Otitis Media Acute Adult Follow-Up: Sunny Mcdonough MD [Primary Care Provider] - Prescriptions: Cefdinir 300 mg PO BID #20 capsule Forms: Activity restrictions
[2018-08-02] MEDS ORDERED: DEXAMETHASONE 10 MG/ML VIAL IVP STA (22:40)
--- NOTE | 2018-08-02 23:10 | XRAY Report ---
Reason: central chest pain cough Procedure Date: 08/02/2018 Accession Number: [id number] / [id number] Procedure: XR - Chest 2 View X-Ray CPT Code: 71729 FULL RESULT: EXAM: CHEST RADIOGRAPHY EXAM DATE: 08/02/2018 10:51 PM. CLINICAL HISTORY: Chest pain x2 weeks. Cough. COMPARISON: None. TECHNIQUE: 2 views. FINDINGS: Lungs/Pleura: Normal volumes. No focal consolidation or evidence of edema. No pleural effusion or pneumothorax. Mediastinum: Heart size is normal. The aorta is mildly tortuous. Other: The bones are unremarkable. IMPRESSION: No acute cardiopulmonary abnormality. RADIA
[2018-08-02 23:14] LABS: BASOPHILS % (AUTO) 0.9 %; EOSINOPHILS # (AUTO) 0.2 10^3/uL (0.0-0.7); EOSINOPHILS % (AUTO) 3.4 %; HGB - HEMOGLOBIN 13.7 g/dL (12.0-16.0); LYMPHOCYTES # (AUTO) 1.8 10^3/uL (1.5-3.5); LYMPHOCYTES % (AUTO) 32.2 %; MEAN CORPUSCULAR HEMOGLOBIN 30.6 pg (27.0-31.0); MEAN CORPUSCULAR HGB CONC 33.9 g/dL (32.0-36.0); MEAN CORPUSCULAR VOLUME 90.5 fL (81.0-99.0); MEAN PLATELET VOLUME 7.8 fL (7.9-10.8); MONOCYTES # (AUTO) 0.5 10^3/uL (0.0-1.0); MONOCYTES % (AUTO) 9.3 %; NEUTROPHILS % (AUTO) 54.2 %; PLT - PLATELET COUNT 258 10^3/uL (130-450); RED BLOOD COUNT 4.48 10^6/uL (4.20-5.40); RED CELL DISTRIBUTION WIDTH 13.4 % (12.0-15.0); WHITE BLOOD COUNT 5.5 x10^3/uL (4.8-10.8)
[2018-08-02 23:26] LABS: ALBUMIN 3.9 g/dL (3.2-5.5); ALBUMIN/GLOBULIN RATIO 1.1 (1.0-2.2); BILIRUBIN,TOTAL 0.6 mg/dL (0.2-1.0); CALCIUM 9.5 mg/dL (8.5-10.3); TOTAL PROTEIN 7.3 g/dL (6.7-8.2)
[2018-08-02] MEDS ORDERED: POTASSIUM CHLOR 10 MEQ/100 ML 10 MEQ/100 ML BAG IV ONE (23:32)
[2018-08-02] MEDS ORDERED: POTASSIUM BICARB 25 MEQ TABLET PO STA (23:32)
[2018-08-03 01:31] VITALS: BP 151/74
== END 2018-08-03 01:31 | disposition home or self-care (01) ==
LOC: EDUNIT# → ED 22:12
DX: M94.0 Chondrocostal junction syndrome [Tietze] (principal); E87.6 Hypokalemia; H66.003 Acute suppurative otitis media without spontaneous rupture of ear drum, bilateral; I10 Essential (primary) hypertension; E03.9 Hypothyroidism, unspecified; Z88.1 Allergy status to other antibiotic agents
CPT/HCPCS: 36415; 71046; 80053; 83690; 84484; 85025; 93005; 96365; 96367; 96375; 99284; A9270

== ENCOUNTER 2019-02-18 08:00 | Outpatient (CLI) | payer MEDICAID ==
[2019-02-18 12:45] LABS: BASOPHILS % (AUTO) 0.5 %; EOSINOPHILS # (AUTO) 0.1 10^3/uL (0.0-0.7); EOSINOPHILS % (AUTO) 2.6 %; HGB - HEMOGLOBIN 13.6 g/dL (12.0-16.0); LYMPHOCYTES # (AUTO) 2.3 10^3/uL (1.5-3.5); LYMPHOCYTES % (AUTO) 42.9 %; MEAN CORPUSCULAR HEMOGLOBIN 29.4 pg (27.0-31.0); MEAN CORPUSCULAR HGB CONC 32.9 g/dL (32.0-36.0); MEAN CORPUSCULAR VOLUME 89.4 fL (81.0-99.0); MEAN PLATELET VOLUME 8.4 fL (7.9-10.8); MONOCYTES # (AUTO) 0.5 10^3/uL (0.0-1.0); MONOCYTES % (AUTO) 9.2 %; NEUTROPHILS # (AUTO) 2.4 10^3/uL (1.5-6.6); NEUTROPHILS % (AUTO) 44.8 %; PLT - PLATELET COUNT 255 10^3/uL (130-450); RED BLOOD COUNT 4.62 10^6/uL (4.20-5.40); RED CELL DISTRIBUTION WIDTH 13.1 % (12.0-15.0); WHITE BLOOD COUNT 5.3 x10^3/uL (4.8-10.8)
== END 2019-02-18 23:59 | disposition home or self-care (01) ==
LOC: LAB.WCP 08:00
PROVIDERS: ATTEND Internal Medicine Rheumatology
DX: L40.50 Arthropathic psoriasis, unspecified (principal)
CPT/HCPCS: 36415; 82565; 84450; 84460; 85025; 85651

== ENCOUNTER → 2019-10-21 | Outpatient (CLI) | payer OTHER ==
[2019-10-21 12:13] LABS: CREATININE 1.2 mg/dL (0.4-1.0)
[2019-10-21 12:21] LABS: CHOL/HDL RATIO 5.7 (<4.4); CHOLESTEROL 233 mg/dL; HDL CHOLESTEROL 41 mg/dL; LDL CHOLESTEROL,CALCULATED 144 mg/dL; LDL/HDL RATIO 3.5 (<4.4); VLDL CHOLESTEROL 48 mg/dL
[2019-10-21 12:25] LABS: HB2 TOTAL 14.6 g/dL; HEMOGLOBIN A1C 0.6 g/dL; HEMOGLOBIN A1C % 5.9 % (4.6-6.2)
[2019-10-21 12:48] LABS: THYROID STIMULATING HORMONE 2.05 uIU/mL (0.34-5.60)
[2019-10-21 12:50] LABS: FREE T4 (FREE THYROXINE) 1.34 ng/dL (0.58-1.64)
== END ==
LOC: LAB.N 08:00
PROVIDERS: ATTEND Physician Assistant Medical
DX: E03.9 Hypothyroidism, unspecified (principal); R73.9 Hyperglycemia, unspecified; E78.5 Hyperlipidemia, unspecified; L40.50 Arthropathic psoriasis, unspecified; N28.9 Disorder of kidney and ureter, unspecified
CPT/HCPCS: 36415; 80061; 82565; 83036; 83721; 84439; 84443; 84520; 85651

== ENCOUNTER 2020-03-04 15:43 | Outpatient (CLI) | payer OTHER ==
--- NOTE | 2020-03-04 19:13 | Ultrasound Report ---
PROCEDURE: Retroperitoneal INDICATIONS: CHRONIC RENAL FAILURE TECHNIQUE: Real-time scanning was performed of the retroperitoneal organs, with image documentation. COMPARISON: None. FINDINGS: Kidneys: Kidneys are normal in size. Right kidney measures 10.2 cm long; left kidney measures 10.3 cm long. Right renal cortical thickness is 1.1 cm; left renal cortical thickness is 1.4 cm. No jason d masses, hydronephrosis, or nephrolithiasis. Prevoid urinary bladder volume is 248 cc. Postvoid residual is 3 cc. IMPRESSION: 1. No hydronephrosis. 2. Small postvoid residual in the urinary bladder. Reviewed by: Hina Valdovinos MD on 03/04/2020 7:11 PM PDT Approved by: Hina Valdovinos MD on 03/04/2020 7:11 PM PDT Station ID: [id number]
== END 2020-03-04 15:44 | disposition home or self-care (01) ==
LOC: DI 15:43
PROVIDERS: ATTEND Obstetrics & Gynecology
DX: N18.3 Chronic kidney disease, stage 3 (moderate) (principal)
CPT/HCPCS: 76770

== ENCOUNTER 2020-04-26 10:41 | Outpatient (CLI) | payer OTHER ==
[2020-04-26 18:06] LABS: BASOPHILS # (AUTO) 0.1 10^3/uL (0.0-0.1); BASOPHILS % (AUTO) 0.9 %; EOSINOPHILS # (AUTO) 0.1 10^3/uL (0.0-0.7); HGB - HEMOGLOBIN 14.6 g/dL (12.0-16.0); LYMPHOCYTES # (AUTO) 2.6 10^3/uL (1.5-3.5); LYMPHOCYTES % (AUTO) 43.9 %; MEAN CORPUSCULAR HEMOGLOBIN 30.7 pg (27.0-31.0); MEAN CORPUSCULAR HGB CONC 32.4 g/dL (32.0-36.0); MEAN CORPUSCULAR VOLUME 94.9 fL (81.0-99.0); MEAN PLATELET VOLUME 11.2 fL (7.9-10.8); MONOCYTES # (AUTO) 0.5 10^3/uL (0.0-1.0); MONOCYTES % (AUTO) 8.2 %; NEUTROPHILS # (AUTO) 2.6 10^3/uL (1.5-6.6); NEUTROPHILS % (AUTO) 44.7 %; PLT - PLATELET COUNT 246 10^3/uL (130-450); RED BLOOD COUNT 4.75 10^6/uL (4.20-5.40); RED CELL DISTRIBUTION WIDTH 13.5 % (12.0-15.0); WHITE BLOOD COUNT 5.9 x10^3/uL (4.8-10.8)
[2020-04-26 19:09] LABS: ALBUMIN 4.3 g/dL (3.2-5.5); ALBUMIN/GLOBULIN RATIO 1.3 (1.0-2.2); BILIRUBIN,TOTAL 0.5 mg/dL (0.2-1.0); CALCIUM 10.6 mg/dL (8.5-10.3); TOTAL PROTEIN 7.5 g/dL (6.7-8.2)
[2020-04-26 19:21] LABS: THYROID STIMULATING HORMONE 1.11 uIU/mL (0.34-5.60)
[2020-04-26 19:24] LABS: FREE T3 3.49 pg/mL (2.5-3.9)
[2020-04-26 19:26] LABS: FREE T4 (FREE THYROXINE) 1.47 ng/dL (0.58-1.64)
== END 2020-04-26 23:59 | disposition home or self-care (01) ==
LOC: LAB.WCP 10:41
PROVIDERS: ATTEND Family Medicine
DX: N28.9 Disorder of kidney and ureter, unspecified (principal); E03.9 Hypothyroidism, unspecified; I10 Essential (primary) hypertension; L40.50 Arthropathic psoriasis, unspecified; L40.9 Psoriasis, unspecified
CPT/HCPCS: 36415; 80053; 84439; 84443; 84481; 85025

== ENCOUNTER 2020-07-04 11:00 | Outpatient (CLI) | payer OTHER ==
[2020-07-11 15:53] LABS: BILIRUBIN,URINE NEGATIVE (NEGATIVE); GLUCOSE, URINE (UA) NEGATIVE (NEGATIVE); KETONES,URINE (UA) NEGATIVE (NEGATIVE); LEUKOCYTE ESTERASE, URINE LARGE (NEGATIVE); NITRITE,URINE NEGATIVE (NEGATIVE); OCCULT BLOOD,URINE LARGE (NEGATIVE); PROTEIN,URINE 30 mg/dL (NEGATIVE); UROBILINOGEN,URINE 0.2 (NORMAL) E.U./dL (NORMAL)
[2020-07-11 15:54] LABS: CLARITY,URINE CLOUDY (CLEAR)
[2020-07-11 15:59] LABS: BACTERIA,URINE Few /HPF (None Seen); SQUAMOUS EPITHELIAL CELL,UR FEW Squamous (<= Few)
== END 2020-07-04 23:59 | disposition home or self-care (01) ==
LOC: LAB.R 11:00
PROVIDERS: ATTEND Nurse Practitioner
DX: R30.0 Dysuria (principal)
CPT/HCPCS: 81001; 81003; 87077; 87086; 87181

== ENCOUNTER 2020-07-12 09:27 | Emergency (ER) | payer OTHER ==
[2020-07-12 10:40] VITALS: BP 143/72
[2020-07-12 10:44] LABS: BILIRUBIN,URINE NEGATIVE (NEGATIVE); GLUCOSE, URINE (UA) NEGATIVE (NEGATIVE); KETONES,URINE (UA) NEGATIVE (NEGATIVE); LEUKOCYTE ESTERASE, URINE NEGATIVE (NEGATIVE); NITRITE,URINE NEGATIVE (NEGATIVE); OCCULT BLOOD,URINE SMALL (NEGATIVE); PH,URINE 6.5 PH (5.0-7.5); PROTEIN,URINE NEGATIVE (NEGATIVE); UROBILINOGEN,URINE 0.2 (NORMAL) E.U./dL (NORMAL)
[2020-07-12 10:50] LABS: CLARITY,URINE CLEAR (CLEAR)
--- NOTE | 2020-07-12 10:52 | ED Physician Documentation ---
PD HPI FEMALE - Stated complaint Stated Complaint: FEMALE - Chief complaint Chief Complaint: UTI - History obtained from History obtained from: Patient - History of Present Illness Timing - onset: How many weeks ago (1) Timing - duration: Weeks (1) Timing - details: Gradual onset, Now resolved (She was having dysuria symptoms and frequency. She states it is improved remarkably while on the antibiotic and has not had any current dysuria the last couple of days.). No: Still present Associated symptoms: Dysuria, Urinary frequency (a week ago, improved). No: Fever Recently seen: Clinic (She was seen by her primary care with the dysuria and had a urinalysis and urine culture. She was prescribed Bactrim and has been taking that regularly. She states her symptoms are much improved. The urinalysis however showed E. coli resistant to the sulfa. Referred to ER by PCP office.) Review of Systems Constitutional: denies: Fever, Chills GI: denies: Abdominal Pain, Nausea, Vomiting Skin: denies: Rash Musculoskeletal: denies: Back pain PD PAST MEDICAL HISTORY - Past Medical History Past Medical History: Yes Cardiovascular: Hypertension, High cholesterol Respiratory: None Neuro: None Endocrine/Autoimmune: HyPOthyroidism GI: None : None HEENT: None Psych: None Musculoskeletal: Other Derm: Psoriasis - Past Surgical History Past Surgical History: Yes /[employer]: Hysterectomy - Present Medications Home Medications: Ambulatory Orders Medication Instructions Recorded Confirmed Levothyroxine [Synthroid] 08/13/17 Potassium Chloride 10 meq PO 08/13/17 Pravastatin [Pravachol] 08/13/17 Ibuprofen [Motrin] 400 mg PO Q8H PRN #20 tablet 11/11/17 Lactobacillus Acidophilus 11/11/17 [Digestive Probiotic] Secukinumab [Cosentyx Pen] 11/11/17 Cefdinir 300 mg PO BID #20 capsule 08/03/18 Nitrofurantoin Monohyd/M-Cryst 100 mg PO BID #10 capsule 07/12/20 [Macrobid 100 mg Capsule] - Allergies Allergies/Adverse Reactions: Allergies Allergy/AdvReac Type Severity Reaction Status Date / Time cephalexin [From Keflex] Allergy Hives Verified 07/12/20 09:44 - Social History Does the pt smoke?: No Smoking Status: Never smoker Does the pt drink ETOH?: No Does the pt have substance abuse?: No - Immunizations Immunizations are current?: Yes - POLST Patient has POLST: No PD ED PE NORMAL - Vitals Vital signs reviewed: Yes - General General: Alert and oriented X 3, No acute distress, Well developed/nourished - Abdomen Abdomen: Soft, Non tender - Back Back: No CVA TTP - Derm Derm: Normal color, Warm and dry - Neuro Neuro: Alert and oriented X 3, No motor deficit, Normal speech Results - Vitals Vitals: Vital Signs - 24 hr 07/12/20 07/12/20 09:44 10:39 Temperature 36.3 C L 36.5 C Heart Rate 54 L 55 L Respiratory 16 16 Rate Blood Pressure 143/69 H 143/72 H O2 Saturation 96 95 Oxygen O2 Source Room air - Labs Labs: Laboratory Tests 07/12/20 10:20 Urine Color YELLOW Urine Clarity CLEAR Urine pH 6.5 Ur Specific [place] <=1.005 Urine Protein NEGATIVE Urine Glucose (UA) NEGATIVE Urine Ketones NEGATIVE Urine Occult Blood SMALL H Urine Nitrite NEGATIVE Urine Bilirubin NEGATIVE Urine Urobilinogen 0.2 (NORMAL) Ur Leukocyte Esterase NEGATIVE Urine RBC 0-5 Urine WBC 0-3 Ur Squamous Epith Cells RARE Squamous Urine Bacteria None Seen Ur Microscopic Review INDICATED Urine Culture Comments NOT INDICATED PD MEDICAL DECISION MAKING - ED course Complexity details: reviewed old records (Reviewed recent urine culture results. ), considered differential (Mostly improved with current Bactrim abx, but culture showing resistance. Given improvement in symptoms, I do not feel need for IV meds or such, as had been suggested to pt by her PCP office. Pt is okay with that. ), d/w patient Departure - Departure Disposition: 01 Home, Self Care Clinical Impression: Urinary tract infection Qualifiers: Urinary tract infection type: site unspecified Hematuria presence: without hematuria Qualified Code(s): N39.0 - Urinary tract infection, site not specified Condition: Stable Record reviewed to determine appropriate education?: Yes Follow-Up: Isma Baum MD [Primary Care Provider] - Prescriptions: Nitrofurantoin Monohyd/M-Cryst [Macrobid 100 mg Capsule] 100 mg PO BID #10 capsule Comments: Since you are feeling improved, the antibiotic is likely working partially and I do not see need to go with IV medications at this time. I would have you change from your current antibiotic to nitrofurantoin twice daily for 5 more days. Recheck if worsening symptoms over that timeframe. Discharge Date/Time: 07/12/20 11:21
[2020-07-12] MEDS ORDERED: NITROFURANTOIN MACRO 100 MG CAPSULE PO STA (10:57)
[2020-07-12 11:12] LABS: BACTERIA,URINE None Seen /HPF (None Seen); RBC,URINE 0-5 /HPF (0-5); SQUAMOUS EPITHELIAL CELL,UR RARE Squamous (<= Few)
== END 2020-07-12 11:21 | disposition home or self-care (01) ==
LOC: ED 09:27
DX: N39.0 Urinary tract infection, site not specified (principal); I10 Essential (primary) hypertension
CPT/HCPCS: 81001; 99283; A9270; 81003; 87086

== ENCOUNTER 2020-07-25 08:00 | Outpatient (CLI) | payer OTHER ==
[2020-07-25 18:06] LABS: CALCIUM 10.3 mg/dL (8.5-10.3); CREATININE 1.1 mg/dL (0.4-1.0); MAGNESIUM 2.6 mg/dL (1.7-2.8)
== END 2020-07-25 23:59 | disposition home or self-care (01) ==
LOC: LAB.WCP 08:00
PROVIDERS: ATTEND Family Medicine
DX: I10 Essential (primary) hypertension (principal); E87.6 Hypokalemia
CPT/HCPCS: 36415; 80048; 83735

== ENCOUNTER 2020-08-25 08:00 | Outpatient (CLI) | payer OTHER ==
[2020-08-25 18:43] LABS: CALCIUM 10.2 mg/dL (8.5-10.3); CREATININE 1.1 mg/dL (0.4-1.0); MAGNESIUM 2.3 mg/dL (1.7-2.8)
== END 2020-08-25 23:59 | disposition home or self-care (01) ==
LOC: LAB.WCP 08:00
PROVIDERS: ATTEND Internal Medicine Nephrology
DX: N18.31 Chronic kidney disease, stage 3a (principal); E87.6 Hypokalemia
CPT/HCPCS: 36415; 80048; 82088; 83735; 84244

== ENCOUNTER 2020-09-20 15:45 | Outpatient (CLI) | payer OTHER | END 2020-09-20 23:59 | LOC: LAB.R 15:45 | PROVIDERS: ATTEND Internal Medicine Nephrology | DX: E26.9 Hyperaldosteronism, unspecified (principal) | CPT/HCPCS: 81599; 82088; 82570; 84300 ==

== ENCOUNTER 2020-09-27 14:13 | Outpatient (CLI) | payer OTHER | END 2020-09-27 23:59 | disposition home or self-care (01) | LOC: LAB.WCP 14:13 | PROVIDERS: ATTEND Internal Medicine Nephrology | DX: E87.6 Hypokalemia (principal) | CPT/HCPCS: 36415; 84132 ==

== ENCOUNTER 2021-01-18 08:00 | Outpatient (CLI) | payer OTHER ==
[2021-01-18 12:29] LABS: BASOPHILS # (AUTO) 0.1 10^3/uL (0.0-0.1); EOSINOPHILS # (AUTO) 0.2 10^3/uL (0.0-0.7); EOSINOPHILS % (AUTO) 3.1 %; HCT - HEMATOCRIT 43.1 % (37.0-47.0); HGB - HEMOGLOBIN 13.9 g/dL (12.0-16.0); LYMPHOCYTES # (AUTO) 3.1 10^3/uL (1.5-3.5); MEAN CORPUSCULAR HEMOGLOBIN 30.3 pg (27.0-31.0); MEAN CORPUSCULAR HGB CONC 32.3 g/dL (32.0-36.0); MEAN CORPUSCULAR VOLUME 93.9 fL (81.0-99.0); MEAN PLATELET VOLUME 10.5 fL (7.9-10.8); MONOCYTES # (AUTO) 0.6 10^3/uL (0.0-1.0); MONOCYTES % (AUTO) 9.9 %; NEUTROPHILS # (AUTO) 2.1 10^3/uL (1.5-6.6); NEUTROPHILS % (AUTO) 34.7 %; PLT - PLATELET COUNT 282 10^3/uL (130-450); RED BLOOD COUNT 4.59 10^6/uL (4.20-5.40); RED CELL DISTRIBUTION WIDTH 13.3 % (12.0-15.0); WHITE BLOOD COUNT 6.1 x10^3/uL (4.8-10.8)
[2021-01-18 12:56] LABS: ALBUMIN 4.2 g/dL (3.2-5.5); ALBUMIN/GLOBULIN RATIO 1.4 (1.0-2.2); ALKALINE PHOSPHATASE 105 IU/L (42-121); ALT ALANINE AMINOTRANSFERASE 22 IU/L (10-60); AST ASPARTATE AMINOTRANSFERASE 19 IU/L (10-42); BUN - BLOOD UREA NITROGEN 19 mg/dL (6-20); CARBON DIOXIDE - CO2 24 mmol/L (21-32); CHLORIDE 106 mmol/L (101-111); CHOL/HDL RATIO 6.7 (<4.4); CHOLESTEROL 320 mg/dL; CREATININE 1.1 mg/dL (0.4-1.0); GFR - MDRD 50 (>89); GLUCOSE 105 mg/dL (70-100); HDL CHOLESTEROL 48 mg/dL; LDL CHOLESTEROL,CALCULATED 224 mg/dL; LDL/HDL RATIO 4.7 (<4.4); POTASSIUM 3.7 mmol/L (3.5-5.0); SODIUM 140 mmol/L (135-145); TOTAL PROTEIN 7.2 g/dL (6.7-8.2); TRIGLYCERIDES 242 mg/dL; VLDL CHOLESTEROL 48 mg/dL
[2021-01-18 12:58] LABS: ESTIMATED AVERAGE GLUCOSE 128 mg/dL (70-100); HEMOGLOBIN A1c% 6.1 % (4.27-6.07)
[2021-01-18 13:07] LABS: THYROID STIMULATING HORMONE 1.69 uIU/mL (0.34-5.60)
[2021-01-18 13:08] LABS: FREE T3 3.47 pg/mL (2.5-3.9)
[2021-01-18 13:09] LABS: FREE T4 (FREE THYROXINE) 1.27 ng/dL (0.58-1.64)
== END 2021-01-18 23:59 | disposition home or self-care (01) ==
LOC: LAB.WCP 08:00
PROVIDERS: ATTEND Family Medicine
DX: I12.9 Hypertensive chronic kidney disease with stage 1 through stage 4 chronic kidney disease, or unspecified chronic kidney disease (principal); N18.9 Chronic kidney disease, unspecified; G47.9 Sleep disorder, unspecified; E87.6 Hypokalemia; R73.9 Hyperglycemia, unspecified; E03.9 Hypothyroidism, unspecified; L40.50 Arthropathic psoriasis, unspecified
CPT/HCPCS: 36415; 80053; 80061; 83036; 83721; 84439; 84443; 84481; 85025

== ENCOUNTER 2021-03-15 08:00 | Outpatient (CLI) | payer OTHER ==
[2021-03-15 18:46] LABS: CALCIUM 9.9 mg/dL (8.5-10.3); CREATININE 1.2 mg/dL (0.4-1.0); POTASSIUM 4.3 mmol/L (3.5-5.0)
== END 2021-03-15 23:59 | disposition home or self-care (01) ==
LOC: LAB.WCP 08:00
PROVIDERS: ATTEND Internal Medicine Nephrology
DX: E87.6 Hypokalemia (principal)
CPT/HCPCS: 36415; 80048

== ENCOUNTER 2021-07-10 09:13 | Outpatient (CLI) | payer OTHER ==
[2021-07-10 12:46] LABS: CREATININE,URINE 119.5 mg/dL; MICROALBUMIN,URINE 0.6 mg/dL (0-300.0)
[2021-07-10 12:51] LABS: CALCIUM 9.9 mg/dL (8.5-10.3); CREATININE 1.1 mg/dL (0.4-1.0); MAGNESIUM 2.3 mg/dL (1.7-2.8); POTASSIUM 3.9 mmol/L (3.5-5.0)
[2021-07-10 15:57] LABS: BASOPHILS % (AUTO) 0.7 %; EOSINOPHILS # (AUTO) 0.1 10^3/uL (0.0-0.7); EOSINOPHILS % (AUTO) 2.2 %; HCT - HEMATOCRIT 44.6 % (37.0-47.0); HGB - HEMOGLOBIN 13.9 g/dL (12.0-16.0); LYMPHOCYTES # (AUTO) 2.4 10^3/uL (1.5-3.5); LYMPHOCYTES % (AUTO) 40.3 %; MEAN CORPUSCULAR HGB CONC 31.2 g/dL (32.0-36.0); MEAN CORPUSCULAR VOLUME 96.3 fL (81.0-99.0); MEAN PLATELET VOLUME 10.6 fL (7.9-10.8); MONOCYTES # (AUTO) 0.6 10^3/uL (0.0-1.0); MONOCYTES % (AUTO) 9.1 %; NEUTROPHILS # (AUTO) 2.9 10^3/uL (1.5-6.6); NEUTROPHILS % (AUTO) 47.4 %; PLT - PLATELET COUNT 277 10^3/uL (130-450); RED BLOOD COUNT 4.63 10^6/uL (4.20-5.40); RED CELL DISTRIBUTION WIDTH 13.1 % (12.0-15.0)
[2021-07-10 16:16] LABS: CHOL/HDL RATIO 3.9 (<4.4); CHOLESTEROL 204 mg/dL; HDL CHOLESTEROL 52 mg/dL; LDL CHOLESTEROL,CALCULATED 120 mg/dL; LDL/HDL RATIO 2.3 (<4.4); TRIGLYCERIDES 159 mg/dL; VLDL CHOLESTEROL 32 mg/dL
[2021-07-10 20:16] LABS: ESTIMATED AVERAGE GLUCOSE 126 mg/dL (70-100)
== END 2021-07-10 23:59 | disposition home or self-care (01) ==
LOC: LAB.WCP 09:13
PROVIDERS: ATTEND Internal Medicine Nephrology
DX: N18.31 Chronic kidney disease, stage 3a (principal); E78.5 Hyperlipidemia, unspecified; R73.9 Hyperglycemia, unspecified
CPT/HCPCS: 36415; 80048; 80061; 82043; 82570; 83036; 83721; 83735; 85025

== ENCOUNTER 2022-07-02 07:54 | Outpatient (CLI) | payer MEDICARE, OTHER ==
[2022-07-02 12:06] LABS: BASOPHILS # (AUTO) 0.1 10^3/uL (0.0-0.1); BASOPHILS % (AUTO) 1.1 %; EOSINOPHILS # (AUTO) 0.2 10^3/uL (0.0-0.7); EOSINOPHILS % (AUTO) 3.2 %; HCT - HEMATOCRIT 44.4 % (37.0-47.0); HGB - HEMOGLOBIN 14.2 g/dL (12.0-16.0); LYMPHOCYTES # (AUTO) 1.8 10^3/uL (1.5-3.5); LYMPHOCYTES % (AUTO) 28.2 %; MEAN CORPUSCULAR HEMOGLOBIN 30.5 pg (27.0-31.0); MEAN CORPUSCULAR VOLUME 95.5 fL (81.0-99.0); MEAN PLATELET VOLUME 10.7 fL (7.9-10.8); MONOCYTES # (AUTO) 0.7 10^3/uL (0.0-1.0); MONOCYTES % (AUTO) 11.3 %; NEUTROPHILS # (AUTO) 3.6 10^3/uL (1.5-6.6); NEUTROPHILS % (AUTO) 55.9 %; PLT - PLATELET COUNT 270 10^3/uL (130-450); RED BLOOD COUNT 4.65 10^6/uL (4.20-5.40); RED CELL DISTRIBUTION WIDTH 14.4 % (12.0-15.0); WHITE BLOOD COUNT 6.5 x10^3/uL (4.8-10.8)
[2022-07-02 12:34] LABS: THYROID STIMULATING HORMONE 1.3 uIU/mL (0.34-5.60)
[2022-07-02 12:35] LABS: ALBUMIN 3.9 g/dL (3.2-5.5); ALBUMIN/GLOBULIN RATIO 1.2 (1.0-2.2); ALKALINE PHOSPHATASE 71 IU/L (42-121); ALT ALANINE AMINOTRANSFERASE 23 IU/L (10-60); AST ASPARTATE AMINOTRANSFERASE 23 IU/L (10-42); BILIRUBIN,TOTAL 0.7 mg/dL (0.2-1.0); BUN - BLOOD UREA NITROGEN 13 mg/dL (6-20); CALCIUM 10.1 mg/dL (8.5-10.3); CARBON DIOXIDE - CO2 28 mmol/L (21-32); CHLORIDE 107 mmol/L (101-111); CHOL/HDL RATIO 3.8 (<4.4); CHOLESTEROL 269 mg/dL; CREATININE 1.1 mg/dL (0.4-1.0); GFR - MDRD 50 (>89); GLUCOSE 102 mg/dL (70-100); HDL CHOLESTEROL 71 mg/dL; LDL CHOLESTEROL,CALCULATED 169 mg/dL; LDL/HDL RATIO 2.4 (<4.4); POTASSIUM 3.5 mmol/L (3.5-5.0); SODIUM 142 mmol/L (135-145); TOTAL PROTEIN 7.1 g/dL (6.7-8.2); TRIGLYCERIDES 144 mg/dL; VLDL CHOLESTEROL 29 mg/dL
[2022-07-02 12:51] LABS: ESTIMATED AVERAGE GLUCOSE 117 mg/dL (70-100); HEMOGLOBIN A1c% 5.7 % (4.27-6.07)
== END 2022-07-02 07:55 | disposition home or self-care (01) ==
LOC: LAB.N 07:54
PROVIDERS: ATTEND Family Medicine
DX: I12.9 Hypertensive chronic kidney disease with stage 1 through stage 4 chronic kidney disease, or unspecified chronic kidney disease (principal); N18.9 Chronic kidney disease, unspecified; R73.03 Prediabetes; E87.6 Hypokalemia; E78.5 Hyperlipidemia, unspecified; L40.50 Arthropathic psoriasis, unspecified
CPT/HCPCS: 36415; 80053; 80061; 83036; 83721; 84443; 85025

== ENCOUNTER 2023-07-08 10:30 | Outpatient (CLI) | payer MEDICARE ==
[2023-07-08 19:56] LABS: ALBUMIN 4.6 g/dL (3.2-5.5); ALBUMIN/GLOBULIN RATIO 1.7 (1.0-2.2); BILIRUBIN,TOTAL 0.5 mg/dL (0.2-1.0); CALCIUM 10.3 mg/dL (8.5-10.3); CREATININE 1.1 mg/dL (0.6-1.3); POTASSIUM 4.4 mmol/L (3.5-4.5); TOTAL PROTEIN 7.3 g/dL (6.4-8.9)
== END 2023-07-08 10:45 | disposition home or self-care (01) ==
LOC: LAB.N 10:30
PROVIDERS: ATTEND Family Medicine
DX: E21.3 Hyperparathyroidism, unspecified (principal)
CPT/HCPCS: 36415; 80053; 83970